=== PATIENT | male | born 1960 | race Caucasian/White ===

== ENCOUNTER 2020-01-05 07:26 | Outpatient (CLI) | payer OTHER, SELFPAY ==
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
[2020-01-28 10:54] VITALS: BMI 31.3
== END 2020-01-05 07:27 | disposition home or self-care (01) ==
LOC: ANHCSM 07:27
PROVIDERS: PCP Family Medicine; Visit Provider Family Medicine
DX: G47.33 Obstructive sleep apnea (adult) (pediatric) (principal); R06.00 Dyspnea, unspecified; I10 Essential (primary) hypertension; I67.9 Cerebrovascular disease, unspecified
CPT/HCPCS: 95800

== ENCOUNTER 2020-05-03 10:31 | Outpatient (CLI) | payer OTHER, SELFPAY ==
--- NOTE | 2020-05-03 10:58 | ECG_ITS ---
Measurements Intervals [place] Rate: 55 P: 49 AL: 184 QRS: -7 QRSD: 90 T: 5 QT: 391 QTc: 375 Interpretive Statements SINUS BRADYCARDIA BORDERLINE ECG Electronically Signed On 05-03-2020 11:25:13 CDT by Chris Sanders D.O.
[2020-05-03 11:16] LABS: Alanine Aminotransferase 33 U/L (4-50); Albumin Level 4.5 g/dL (3.5-5.1); Alkaline Phosphatase 53 U/L (38-126); Anion Gap 3 mmol/L (8-16); Aspartate Amino Transferase 30 U/L (17-59); Bilirubin,Total 0.6 mg/dL (0.2-1.3); Blood Urea Nitrogen 18 mg/dL (9-20); Calcium 9.4 mg/dL (8.4-10.2); Carbon Dioxide 33 mmol/L (22-30); Chloride 105 mmol/L (98-107); Estimated Glomerular Filt Rate 48; Glucose 88 mg/dL (75-110); Potassium 4.5 mmol/L (3.4-5.0); Sodium 141 mmol/L (137-145)
[2020-05-03 12:19] LABS: Hematocrit 42.7 % (42.0-52.0); Hemoglobin 14.1 g/dL (14.0-18.0); Mean Corpuscular Hemoglobin 29.7 pg (26-34); Mean Corpuscular Volume 89.9 fl (80-100); Mean Platelet Volume 8.3 fl (7.4-10.4); Platelet Count Result 272 k/mm3 (150-375); Red Blood Count 4.75 M/mm3 (4.6-6.20); Red Cell Distribution Width 12.5 % (11.5-14.5); White Blood Count 7.6 K/mm3 (4.5-10.0)
== END 2020-05-03 10:32 | disposition home or self-care (01) ==
LOC: ANHLAB 10:33
PROVIDERS: PCP Family Medicine; Visit Provider Orthopaedic Surgery
DX: Z01.818 Encounter for other preprocedural examination (principal); R94.31 Abnormal electrocardiogram [ECG] [EKG]
CPT/HCPCS: 36415; 80053; 85027; 93005

== ENCOUNTER 2020-08-28 10:57 | Outpatient (CLI) | payer OTHER, SELFPAY ==
--- NOTE | ~2020-08-28 | MR_ITS ---
EXAMINATION: MR shoulder RT wo con DATE: 08/28/2020 11:45 INDICATION: Right shoulder tendinitis and pain. TECHNIQUE: Magnetic resonance imaging (MRI) of the right shoulder was performed without intravenous c ontrast. Sequences included axial PD-weighted FS FSE, coronal oblique PD-weighted FS FSE and T2-weigh rina FS FSE, and sagittal oblique T2-weighted FS FSE and T1-weighted FSE. COMPARISON: Right shoulder radiographs 06/07/2020 FINDINGS: Coracoacromial arch: The acromion undersurface is curved in morphology (type II). There is severe acromioclavicular joint osteoarthritis including inferiorly directed osteophytes. There is moderate subacromial/subdeltoid bu rsitis. Rotator cuff: There is moderate supraspinatus and infraspinatus tendinopathy. Teres minor tendon is normal. There i s moderate subscapularis tendinopathy. There is a small interstitial tear of subscapularis tendon. Th ere is no asymmetric fatty atrophy of the rotator cuff muscle bellies. Biceps tendon and glenoid labrum: Biceps tendon is in bicipital groove. Intra-articular biceps tendon is normal. There is a tear of sup erior labrum from 11:00 to 12:00 (SLAP tear). Fluid: There is a small glenohumeral joint effusion. Bones/cartilage: Humeral head cartilage is normal. Glenoid cartilage is normal. IMPRESSION: 1. Moderate rotator cuff tendinopathy with small interstitial tear of subscapularis tendon. 2. Severe acromioclavicular joint osteoarthritis. 3. SLAP tear. 4. Moderate subacromial/subdeltoid bursitis. 5. Small glenohumeral joint effusion. Reviewed, dictated and finalized at location A. IMPRESSION: 1. Moderate rotator cuff tendinopathy with small interstitial tear of subscapul ramos tendon. 2. Severe acromioclavicular joint osteoarthritis. 3. SLAP tear. 4. Moderate subacromial/subdeltoid bursitis. 5. Small glenohumeral joint effusion.
== END 2020-08-28 10:58 | disposition home or self-care (01) ==
PROVIDERS: PCP Family Medicine; Visit Provider Orthopaedic Surgery
DX: M75.81 Other shoulder lesions, right shoulder (principal); M19.011 Primary osteoarthritis, right shoulder; S43.431A Superior glenoid labrum lesion of right shoulder, initial encounter; M75.51 Bursitis of right shoulder; M25.411 Effusion, right shoulder
CPT/HCPCS: 73221

== ENCOUNTER 2021-01-21 01:35 | Day surgery (SDC) | payer OTHER, SELFPAY ==
[2021-01-06 14:17] VITALS: BMI 32.2
[2021-01-21 09:29] VITALS: BP 109/80; PULSE 69; RESP 20; TEMP 36.4; O2SAT 99; BMI 33.0
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
[2021-01-21] MEDS: LACTATED RINGERS 1,000 ML 150 ML IV CONT (09:43)
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
[2021-01-21 10:20] VITALS: BP 81/54; PULSE 64; RESP 22; O2SAT 95
[2021-01-21 10:30] VITALS: BP 99/69; PULSE 76; RESP 22; O2SAT 95
[2021-01-21 10:40] VITALS: BP 105/74; PULSE 65; RESP 22; O2SAT 96
== END 2021-01-21 10:48 | disposition home or self-care (01) ==
PROVIDERS: PCP Family Medicine; Visit Provider Internal Medicine Gastroenterology
PROC: 0DJD8ZZ Inspection of Lower Intestinal Tract, Via Natural or Artificial Opening Endoscopic (ICD-10-PCS; CPT 45378; principal; 2021-01-21 10:30)
DX: Z12.11 Encounter for screening for malignant neoplasm of colon (principal); Z86.010 Personal history of colon polyps; K64.8 Other hemorrhoids; Z86.718 Personal history of other venous thrombosis and embolism; I49.9 Cardiac arrhythmia, unspecified; I70.213 Atherosclerosis of native arteries of extremities with intermittent claudication, bilateral legs; I71.03 Dissection of thoracoabdominal aorta; I15.0 Renovascular hypertension; I10 Essential (primary) hypertension; E78.5 Hyperlipidemia, unspecified; G47.33 Obstructive sleep apnea (adult) (pediatric); I70.1 Atherosclerosis of renal artery; Z90.49 Acquired absence of other specified parts of digestive tract; Z79.82 Long term (current) use of aspirin; E66.9 Obesity, unspecified; Z68.33 Body mass index [BMI] 33.0-33.9, adult
CPT/HCPCS: 45378; J2704; J7120

== ENCOUNTER 2021-02-15 00:15 | Day surgery (SDC) | payer OTHER, SELFPAY ==
[2021-02-08 12:12] VITALS: BMI 32.1
--- NOTE | 2021-02-08 12:20 | PC.NURSE ---
Report to the Outpatient Waiting Room, entrance under the green pavilion located off [facility], at time 0600 on date 02/15/21. OR Time: 0730. - You and your visitor will be asked a series of questions to screen for COVID 19 for your protection. - A mask is required within the hospital. - Only one visitor is allowed at this time. Patient visitors will be guided where to wait when not with patient. Preoperative COVID Testing Requirements: No COVID Test needed if: (proof is required; if not received patient will have Rapid Test prior to entry) - Patient has received COVID Vaccine at least 14 days prior to procedure date or - Patient has positive COVID test result within last 90 days of surgery date. COVID Test needed if above criteria is not met If not COVID vaccinated a COVID test must be conducted within 72 hours of surgery and patient is asked to isolate self from time of testing until procedure. You will go to the [facility] for your COVID testing. The [facility] is located at the corner of [address] [facility]. You will only be called if COVID results are positive and your surgeon may reschedule your elective surgery date. Patients may have clear liquids (water, carbonated beverages, clear teas, apple juice) until 3 hours prior to surgery with a maximum of 20 ounces. - No food from midnight until time of surgery - Infants may have breast milk until 4 hours before surgery, formula 6 hours prior to surgery. - Children will be allowed to drink immediately following surgery. If applicable, please bring a bottle or sippy cup to assist with drinking. Juice, water, soda, and popsicles are readily available. For infants on formula, please bring formula the day of surgery. Pacifiers are allowed. Take the following medications with a SIP of water the morning of surgery: METOPROLOL Medications to discontinue per physician: VITAMINS/SUPPLEMENTS Date to take last dose: 02/11/21 STOP ASPIRIN 7 DAYS PRIOR TO SURGERY PER DR. FRANCO Please no make-up, nail greek, hairspray, perfume, deodorant, or body powder the day of surgery. No jewelry (including any body piercings) or valuables the day of surgery, leave them at home. Please take a shower or bath the night before, or the morning of, surgery with an antibacterial soap. Wear comfortable, loose fitting clothing. Children are encouraged to wear pajamas. - Jewelry must be removed prior to entering the operating room. Rings and piercings that are not removed may be cut off. - The hospital will not accept responsibility for valuables. - Please leave all valuables, including medications, at home the day of surgery. If you are going home after surgery, a licensed screw driver operator must drive you home. - NO public transportation without another adult. - We recommend that an adult stay with you for 24 hours following discharge. - We also recommend that you do not drive, make important decision, drink alcoholic beverages, or take any drugs that were not prescribed by your health care provider for at least 24 hours after your discharge time. For Pediatric surgeries, we recommend two adults accompany the child home (only one inside the building at this time). Follow any additional instructions given to you from your surgeon. Telephone instructions given to NICHOLAS JOSUE and asked if any additional questions and then verbalized understanding. Patient advised to call surgeon office or pre surgery nurse liaison [phone] if any additional questions.
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
--- NOTE | 2021-02-14 14:26 | WPDANESPNB ---
Anes - Peripheral Nerve Block Date/Time: 02/14/21 14:26 I have discussed with the patient/family/POA the placement of a peripheral nerve block for post-operative pain management, including associated risks, benefits, complications, and side effects. Alternative methods of post-operative analgesia were detailed. Questions were solicited and answers provided to the satisfaction of the patient/family/POA. Time-Out: A pre-procedural Time-Out was completed immediately before starting the procedure and confirmed: Patient Identification, Site, Procedure, Patient Position and the Availability of Requisite Equipment. Clinical Indications: Acute post-operative pain management requested by the operative surgeon. Nerve Block Insertion Note Anes-nerve block: supraclavicular right Patient position: supine Skin prep: chlorhexidine Needle: 22 gauge, stimulating, insulated echogenic needle. Needle length: 80 mm Technique: ultrasound (in plane) Injectate: bupivacaine 0.5% with epi 5 mcg/ml (20cc) Observations: tolerated well Complications: none Procedure start time:: 730 Procedure end time:: 735
[2021-02-15] VITALS (10 sets, daily range): BP systolic 91–153; BP diastolic 66–83; PULSE 49–69; RESP 14–22; TEMP 36.1–36.6; O2SAT 91–99
[2021-02-15] MEDS: ACETAMINOPHEN 500 MG TABLET 1000 MG PO (06:34)
[2021-02-15] MEDS: KETOROLAC 15 MG/ML VIAL (*BKC) IV PUSH (06:53)
[2021-02-15] MEDS: LACTATED RINGERS 1,000 ML 30 ML IV CONT ×2 (06:55→10:40)
--- NOTE | 2021-02-15 07:25 | WPDHPUPDATE1 ---
History and Physical Update Update Date/Time: 02/15/21 07:25 History and Physical has been reviewed, including an updated exam of the patient. There are NO changes in the patient's condition. Risks, benefits, and alternatives have been discussed and questions answered. Patient agrees to proceed with procedure.
[2021-02-15] MEDS: ceFAZolin 3 GM/D5W 100 ML 100 ML IVPB (07:50)
--- NOTE | 2021-02-15 14:25 | W.PM.PROC2 ---
Procedure Note - Detailed Date of Procedure 02/15/21 Pre-op Diagnosis 1. Rotator cuff tendinitis, right shoulder. 2. Impingement syndrome right shoulder. 3. SLAP tear right shoulder. Post-op Diagnosis same Procedure Performed 1. Arthroscopic rotator cuff repair. 2. Arthroscopic subacromial decompression 3. Arthroscopic biceps tenodesis Surgeon Gavino Vail MD Tow Truck Operator Janet Hua PA-C Anesthesia general and regional (supraclavicular block) Indications Patient complained of persistent lateral shoulder pain worse with reaching, and overhead activities. Pain despite an injection and physical therapy. Significant limitations in his quality of life. MRI showed interstitial tearing of the supraspinatus with tendinosis. Subacromial spur. Slap tear. Findings Significant unstable SLAP tear. Mild biceps tendinosis. Arthroscopic biceps tenodesis performed with suture at the rotator interval. Debridement of the superior anterior and posterior labrum. Articular cartilage appeared normal. The articular rotator cuff was also normal. No significant contractures. Mild bursitis encountered. Slight softening of the rotator cuff at the area of the interstitial tear. Regeneten implant placed on the rotator cuff and reparied with 3 BIANCA anchors and 2 peek anchors. Description of Procedure Preoperative antibiotics were given. An interscalene block was administered in the preoperative area. The patient was bought brought to the operating room. A general anesthetic was administered. The patient was carefully positioned in the beach chair position. The head and neck were carefully positioned. The non operative extremity was also carefully positioned. The shoulder was prepped and draped in the usual sterile fashion. Examination was performed. Standard posterior and anterior arthroscopic portals were established. Inflow achieved with the arthroscopic pump using saline and epinephrine. The glenohumeral joint was carefully inspected. The superior labrum was significantly torn with extension anteriorly and posteriorly. This was debrided. The biceps was pulled in the joint and found to have some hyperemia. An anterior portal was used. The biceps was tagged with PDS suture and an Orthocord suture was shuttled through the tendon. It was later tied on the bursal side for tenodesis. Attention was turned to the subacromial space. A complete bursectomy was performed. The anterolateral acromion was slightly prominent. A modest acromioplasty was performed. The rotator cuff appeared mostly normal although there was some low-grade fraying of the bursal side and a small soft spot subtly at the central supraspinatus. It was elected repair with the Regeneten collagen implant. Three BIANCA suture anchors were placed along the medial aspect of the tissue, and 2 peek anchors placed laterally. The arthroscopic instruments were removed. The wounds were closed with 4-0 Monocryl subcuticular suture and steri strips. There were no complications. A sling was applied and the patient brought to the recovery room. Physician under water assistant, Janet Hua PA-C, required for surgery; including patient positioning, draping, arthroscopic camera operation, maintaining instrument position, wound closure, and dressing and sling placement. Implants Regeneten Bio inductive implant, medium-sized. Three medial BIANCA tendon anchors. Two lateral PEEK bone anchors. Estimated Blood Loss -20.0 Pathology none sent Complications No immediate complications Condition stable Disposition PACU
== END 2021-02-15 13:00 | disposition home or self-care (01) ==
PROVIDERS: PCP Family Medicine; Visit Provider Orthopaedic Surgery
PROC: (CPT 29805; principal; 2021-02-15 07:30)
DX: M75.81 Other shoulder lesions, right shoulder (principal); M75.101 Unspecified rotator cuff tear or rupture of right shoulder, not specified as traumatic; M75.41 Impingement syndrome of right shoulder; M75.21 Bicipital tendinitis, right shoulder; M75.51 Bursitis of right shoulder; G89.18 Other acute postprocedural pain; I10 Essential (primary) hypertension; E78.5 Hyperlipidemia, unspecified; G47.33 Obstructive sleep apnea (adult) (pediatric); I73.9 Peripheral vascular disease, unspecified; Z86.73 Personal history of transient ischemic attack (TIA), and cerebral infarction without residual deficits; Z86.718 Personal history of other venous thrombosis and embolism; Z79.82 Long term (current) use of aspirin; E66.9 Obesity, unspecified; Z68.34 Body mass index [BMI] 34.0-34.9, adult
CPT/HCPCS: 29828; 29827; 29826; 64415; A4565; A9270; J0330; J0690; J1100; J1885; J2250; J2370; J2405; J2704; J3010; J7120

== ENCOUNTER → 2022-07-28 08:30 | Outpatient (CLI) | payer OTHER, SELFPAY ==
--- NOTE | ~2022-07-28 | XR_ITS ---
EXAMINATION: XR knee LT 3V DATE: 07/28/2022 08:51 INDICATION: Left knee pain. TECHNIQUE: 3 views of left knee were obtained. COMPARISON: None. FINDINGS: Bone alignment is normal. No fracture. There is mild tricompartmental osteoarthritis charac terized by tiny osteophytes. No knee joint effusion. IMPRESSION: 1. Mild left knee osteoarthritis. Reviewed, dictated and finalized at location A.
== END ==
PROVIDERS: PCP Family Medicine; Visit Provider Physician Assistant
DX: M17.12 Unilateral primary osteoarthritis, left knee (principal)
CPT/HCPCS: 73562

== ENCOUNTER → 2022-10-10 09:18 | Outpatient (CLI) | payer OTHER, SELFPAY ==
--- NOTE | ~2022-10-10 | MR_ITS ---
EXAMINATION: MR knee LT wo con DATE: 10/10/2022 10:05 INDICATION: Left knee pain TECHNIQUE: Magnetic resonance imaging (MRI) of the left knee was performed without intravenous contra st. Sequences included coronal PD-weighted FSE, coronal PD-weighted FS FSE, sagittal T2-weighted FSE , sagittal PD-weighted FS FSE and axial PD weighted fat saturated FSE. COMPARISON: None. FINDINGS: Medial compartment: Longitudinal horizontal tear of the body and posterior horn of the medial meniscus which extends into the superior articular surface at the anterior body crossing across the free edge to the free edge a t the mid meniscal body. Small region of shallow chondral surface regularity along the lateral rim of the central weightbearing medial femoral condyle. Articular cartilage is otherwise normal. Lateral compartment: There is an irregular contour with mild increased signal at the posterior root of the lateral meniscu s suggestive of complex tear with posterior displacement of a small meniscal flap which is positioned with along the lateral margin of the vertical portion of the posterior cruciate ligament. There is a n intact posterior meniscal femoral ligament of [place]. Articular cartilage is normal. Patellofemoral compartment: Deep chondral fissuring with a few tiny foci of subarticular edema-like signal change centrally at th e central portion of the patellar apical ridge and extending to the immediately adjacent medial and l ateral facets. Ligaments and tendons: Anterior and posterior cruciate ligaments are normal. The medial collateral ligament and fibular warren ateral ligament complex are normal. Mild distal quadriceps tendinopathy. Large heterotopic ossicle an d mild tendinopathy at the and tibial insertion of the distal patellar tendon which suggests sequela of childhood [place] Thomas-Schlatter's disease. The visualized medial and lateral hamstring tendons as well as the iliotibial band are normal. Fluid: Physiologic amount of fluid in the joint space. No loose osteochondral bodies identified. Osseous/other: Bone alignment is normal. No fracture or pathologic marrow replacing process. IMPRESSION: 1. Longitudinal horizontal tear of the medial meniscus. 2. Complex tear with small displaced meniscal flap into the posterior root of the lateral meniscus. 3. Mild patellofemoral osteoarthritis with high-grade patellar chondromalacia. 4. Minimal osteoarthritis at the lateral compartment with small region of moderate grade chondral mal acia along the weightbearing medial femoral condyle. 5. Prominent heterotopic ossicle and mild tendinopathy at the distal patellar tendon likely sequela o f childhood [place] Thomas-Schlatter's disease. Reviewed, dictated and finalized at location A. IMPRESSION: 1. Longitudinal horizontal tear of the medial meniscus. 2. Complex tear with small displaced meniscal flap into the posterior root of t he lateral meniscus. 3. Mild patellofemoral osteoarthritis with high-grade patellar chondromalacia. 4. Minimal osteoarthritis at the lateral compartment with small region of moder ate grade chondral malacia along the weightbearing medial femoral condyle. 5. Prominent heterotopic ossicle and mild tendinopathy at the distal patellar t endon likely sequela of childhood Min-Schlatter's disease.
== END ==
PROVIDERS: PCP Family Medicine; Visit Provider Physician Assistant Surgical
DX: S83.272A Complex tear of lateral meniscus, current injury, left knee, initial encounter (principal); X58.XXXA Exposure to other specified factors, initial encounter; S83.242A Other tear of medial meniscus, current injury, left knee, initial encounter; M17.12 Unilateral primary osteoarthritis, left knee
CPT/HCPCS: 73721

== ENCOUNTER 2022-11-21 01:44 | Day surgery (SDC) | payer OTHER, SELFPAY ==
[2022-11-14 09:54] VITALS: BMI 32.7
--- NOTE | 2022-11-14 10:01 | PC.NURSE ---
Report to the Outpatient Waiting Room, entrance under the green pavilion located off [facility], at time 1130 on date 11/21/22. Planned Procedure Time: 1330. Time changes happen often and if your time is changed the preop area will call you the afternoon before. - You and your visitor will be asked to self-screen and do not enter if you have any COVID symptoms. - A mask is optional within the hospital at this time. Patients may have clear liquids (water, carbonated beverages, clear teas, apple juice) until 3 hours prior to surgery with a maximum of 20 ounces. - No food from midnight until time of surgery Take the following medications with a SIP of water the morning of surgery: METOPROLOL DO NOT STOP ANY OF YOUR OTHER PRESCRIPTION MEDICATIONS PRIOR TO SURGERY ?EXCEPT THE FOLLOWING Medications to discontinue per physician: ASPIRIN, NAPROXEN Date to take last dose: 11/13/22 VITAMINS LAST DOSE 11/17/22 Please no make-up, nail serbian, hairspray, perfume, deodorant, or body powder the day of surgery. No jewelry (including any body piercings) or valuables the day of surgery, leave them at home. Please take a shower or bath the night before, or the morning of, surgery with an antibacterial soap. Wear comfortable, loose fitting clothing. - Jewelry must be removed prior to entering the operating room. Rings and piercings that are not removed may be cut off. - The hospital will not accept responsibility for valuables. - Please leave all valuables, including medications, at home the day of surgery. If you are going home after surgery, a licensed local company hazmat driver must drive you home. - NO public transportation without another adult if you receive anesthesia. - We recommend that an adult stay with you for 24 hours following discharge. - We also recommend that you do not drive, make important decision, drink alcoholic beverages, or take any drugs that were not prescribed by your health care provider for at least 24 hours after your discharge time. Follow any additional instructions given to you from your surgeon. If you or anyone in your household have experienced Covid symptoms in the past week, please notify your surgeon or the nurse liaison at the phone number below for possible testing. Telephone instructions given to PT - NICHOLAS JOSUE and asked if any additional questions and then verbalized understanding. Patient advised to call surgeon office or pre surgery nurse liaison [phone] if any additional questions.
[2022-11-21] VITALS (8 sets, daily range): BP systolic 91–135; BP diastolic 58–76; PULSE 44–61; RESP 14–16; TEMP 36.2–36.3; O2SAT 96–100
--- NOTE | 2022-11-21 07:12 | WPDHPUPDATE1 ---
History and Physical Update Update Date/Time: 11/21/22 07:12 PROCEDURE CLARIFICATION; LEFT KNEE ARTHROSCOPIC PARTIAL MEDIAL AND LATERAL MENISCECTOMIES. History and Physical has been reviewed, including an updated exam of the patient. There are NO changes in the patient's condition. Risks, benefits, and alternatives have been discussed and questions answered. Patient agrees to proceed with procedure.
--- NOTE | 2022-11-21 10:15 | ECG_ITS ---
Measurements Intervals [place] Rate: 52 P: 16 WI: 189 QRS: -9 QRSD: 93 T: 8 QT: 426 QTc: 397 Interpretive Statements SINUS BRADYCARDIA EARLY REPOLARIZATION [ST ELEVATION WITH NORMALLY INFLECTED T WAVE] COMPARED TO ECG 05/03/2020 11:08:38 NO SIGNIFICANT CHANGES Electronically Signed On 11-21-2022 12:46:18 CDT by Kevon Hayden M.D.
[2022-11-21] MEDS: KETOROLAC 15 MG/ML VIAL (*BKC) IV PUSH (12:00)
[2022-11-21] MEDS: ACETAMINOPHEN 500 MG TABLET 1000 MG PO (12:00)
[2022-11-21] MEDS: LACTATED RINGERS 1,000 ML 30 ML IV CONT ×2 (12:00→13:41)
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
[2022-11-21] MEDS: ceFAZolin 2 GM/D5W 50 ML 2 GM/50 ML BAG IVPB (12:30)
[2022-11-21] MEDS: BUPIVACAINE/EPINEPHRINE 0.5% 10 ML VIAL 20 ML INFILTRATE (12:54)
--- NOTE | 2022-11-21 13:35 | W.PM.PROC2 ---
Procedure Note - Detailed Date of Procedure 11/21/22 Pre-op Diagnosis Left knee medial and lateral meniscus tears Post-op Diagnosis Same Procedure Performed Arthroscopic partial medial and lateral meniscectomy, left knee. Surgeon Gavino Vail MD Anesthesia General Findings Complex posterior horn tear medial and subtle posterior horn lateral tear. Medial femur chondromalacia grade 1, medial tibia grade 1. Lateral femur chondromalacia grade 0, lateral tibia grade 1. Patellar grade 0, trochlea grade 0. ACL intact. Description of Procedure The patient was identified and the surgical site confirmed and signed in the preoperative holding area. Antibiotics were started per protocol. He was brought to the operative room and transferred to the OR table. A general anesthetic was administered. Supine position with the operative lower extremity position in the leg rios after placement of a well padded tourniquet. The leg support was lowered and the contralateral limb was supported with a soft bolster. The knee was prepped and draped in the usual sterile fashion. A time-out was performed. The portal sites were marked and infiltrated with 0.5% Marcaine 20 mL. The limb was exsanguinated and the tourniquet inflated to 300 mL Hg. Standard inferolateral and inferomedial portals were established. Inflow was obtained with the saline pump. The camera was introduced. Diagnostic inspection of the joint was accomplished. The menisci were debrided with the arthroscopic shaver and punches until stable. The arthroscopic instruments were removed. The tourniquet released and wounds closed with subcutaneous 4-0 Monocryl absorbable suture. Steri strips and a sterile dressing were applied. A light elastic wrap was placed. The patient was extubated and brought to the recovery room in stable condition. Estimated Blood Loss 5 Drains No Complications No immediate complications Condition Stable Disposition PACU [facility] Billing Surgery - Charge Forward: Surgery Billing
== END 2022-11-21 14:48 | disposition home or self-care (01) ==
PROVIDERS: PCP Family Medicine; Visit Provider Orthopaedic Surgery
PROC: (CPT 29870; principal; 2022-11-21 13:30)
DX: M23.322 Other meniscus derangements, posterior horn of medial meniscus, left knee (principal); M23.352 Other meniscus derangements, posterior horn of lateral meniscus, left knee; M22.42 Chondromalacia patellae, left knee; I10 Essential (primary) hypertension; E78.5 Hyperlipidemia, unspecified; G47.33 Obstructive sleep apnea (adult) (pediatric); I70.1 Atherosclerosis of renal artery; I70.213 Atherosclerosis of native arteries of extremities with intermittent claudication, bilateral legs; E66.9 Obesity, unspecified; Z68.33 Body mass index [BMI] 33.0-33.9, adult; Z79.82 Long term (current) use of aspirin; Z86.718 Personal history of other venous thrombosis and embolism; Z86.73 Personal history of transient ischemic attack (TIA), and cerebral infarction without residual deficits
CPT/HCPCS: 29880; 93005; A9270; J0690; J1100; J1885; J2250; J2405; J2704; J3010; J7120

== ENCOUNTER 2022-12-04 10:42 | Outpatient (CLI) | payer OTHER, SELFPAY ==
[2022-12-04 20:13] LABS: Alanine Aminotransferase 27 U/L (6-50); Albumin Level 4.5 g/dL (3.5-5.1); Alkaline Phosphatase 64 U/L (38-126); Anion Gap 9 mmol/L (8-16); Aspartate Amino Transferase 34 U/L (17-59); Bilirubin,Total 0.6 mg/dL (0.2-1.3); Blood Urea Nitrogen 20 mg/dL (9-20); Calcium 9.3 mg/dL (8.4-10.2); Carbon Dioxide 26 mmol/L (22-30); Chloride 103 mmol/L (98-107); Cholesterol 184 mg/dL (0-200); Estimated Glomerular Filt Rate > 60; Glucose 114 mg/dL (65-110); HDL Direct 42 mg/dL; Potassium 4.3 mmol/L (3.4-5.0); Sodium 138 mmol/L (137-145); Triglycerides 131 mg/dL (<150)
[2022-12-04 20:24] LABS: LDL Cholesterol Direct 107 mg/dL
[2022-12-05 00:24] LABS: Hemoglobin A1C 5.5 % (<5.7)
== END 2022-12-04 10:43 | disposition home or self-care (01) ==
LOC: ANHGOSHLAB 10:43
PROVIDERS: PCP Family Medicine; Visit Provider Family Medicine
DX: E78.5 Hyperlipidemia, unspecified (principal); R73.03 Prediabetes
CPT/HCPCS: 36415; 80053; 80061; 83036

== ENCOUNTER 2023-02-13 10:29 | Emergency (ER) | payer OTHER, SELFPAY ==
[2023-02-13 10:55] VITALS: BP 125/82; PULSE 81; RESP 16; TEMP 36.4; O2SAT 98
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
== END 2023-02-13 11:08 | disposition home or self-care (01) ==
PROVIDERS: Emergency Provider Nurse Practitioner Family; PCP Family Medicine
DX: J01.80 Other acute sinusitis (principal); B96.89 Other specified bacterial agents as the cause of diseases classified elsewhere; E78.5 Hyperlipidemia, unspecified; G57.33 Lesion of lateral popliteal nerve, bilateral lower limbs; Z86.718 Personal history of other venous thrombosis and embolism; E66.9 Obesity, unspecified; Z68.32 Body mass index [BMI] 32.0-32.9, adult; I10 Essential (primary) hypertension
CPT/HCPCS: 99213; G0463

== ENCOUNTER 2023-06-06 09:22 | Outpatient (CLI) | payer OTHER, SELFPAY ==
[2023-06-06 12:24] LABS: Alanine Aminotransferase 27 U/L (6-50); Albumin Level 4.3 g/dL (3.5-5.1); Alkaline Phosphatase 71 U/L (38-126); Anion Gap 6 mmol/L (4-12); Aspartate Amino Transferase 40 U/L (17-59); Bilirubin,Total 0.6 mg/dL (0.2-1.3); Blood Urea Nitrogen 21 mg/dL (9-20); Calcium 9.2 mg/dL (8.4-10.2); Carbon Dioxide 27 mmol/L (22-30); Chloride 108 mmol/L (98-107); Cholesterol 151 mg/dL (0-200); Estimated Glomerular Filt Rate > 60; Glucose 103 mg/dL (65-110); HDL Direct 41 mg/dL; Potassium 4.6 mmol/L (3.4-5.0); Sodium 141 mmol/L (137-145); Triglycerides 99 mg/dL (<150)
[2023-06-06 12:35] LABS: LDL Cholesterol Direct 95 mg/dL
[2023-06-06 12:43] LABS: Hemoglobin A1C 5.6 % (<5.7)
== END 2023-06-06 09:23 | disposition home or self-care (01) ==
LOC: ANHGOSHLAB 09:25
PROVIDERS: PCP Family Medicine; Visit Provider Family Medicine
DX: E78.5 Hyperlipidemia, unspecified (principal)
CPT/HCPCS: 36415; 80053; 80061; 83036

== ENCOUNTER 2023-11-30 09:28 | Outpatient (CLI) | payer OTHER, SELFPAY ==
[2023-11-30 16:39] LABS: Alanine Aminotransferase 26 U/L (6-50); Albumin Level 4.1 g/dL (3.5-5.1); Alkaline Phosphatase 69 U/L (38-126); Anion Gap 5 mmol/L (4-12); Aspartate Amino Transferase 39 U/L (17-59); Bilirubin,Total 0.3 mg/dL (0.2-1.3); Blood Urea Nitrogen 24 mg/dL (9-20); Carbon Dioxide 30 mmol/L (22-30); Chloride 105 mmol/L (98-107); Cholesterol 161 mg/dL (0-200); Estimated Glomerular Filt Rate > 60; Glucose 86 mg/dL (65-110); HDL Direct 43 mg/dL; Potassium 4.8 mmol/L (3.4-5.0); Sodium 140 mmol/L (137-145); Triglycerides 111 mg/dL (<150)
[2023-11-30 16:47] LABS: LDL Cholesterol Direct 87 mg/dL
[2023-11-30 16:49] LABS: Hemoglobin A1C 5.9 % (<5.7)
[2023-11-30 17:05] LABS: Prostate Specific Antigen 0.7 ng/mL (< OR = 4.0)
== END 2023-11-30 09:29 | disposition home or self-care (01) ==
LOC: ANHGOSHLAB 09:30
PROVIDERS: PCP Family Medicine; Visit Provider Family Medicine
DX: E78.5 Hyperlipidemia, unspecified (principal); N18.30 Chronic kidney disease, stage 3 unspecified; Z12.5 Encounter for screening for malignant neoplasm of prostate
CPT/HCPCS: 36415; 80053; 80061; 83036; 84153; G0103

== ENCOUNTER 2024-06-04 09:21 | Outpatient (CLI) | payer OTHER, SELFPAY ==
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
--- OUTSIDE RECORDS SUMMARY | 2024-06-04 10:05 | XMS_ITS | Clinical Summary ---
Author Organization [facility] Address [address] [place] [address] Care Team Providers Care Route Agent Name Role Phone Unavailable Primary Care Provider Unavailabl e Social History Tobacco Use Types Packs/Day Years Used Date Smoking Tobacco: Never Assessed Sex and Gender Information Value Date Recorded Sex Assigned at Not on file Legal Sex Male 10:29 PM CDT Gender Identity Not on file Sexual Orientation Not on file Plan of Treatment Health Maintenance Due Date Last Done Comments Colorectal Cancer Screening Colonoscopy (10 Years) 1960 Annual Physical 05/29/1963 Hepatitis C 1978 DTaP, Tdap and Td Vaccines ( 1 - Tdap) 05/29/1979 Zoster Vaccines (1 of 2) 2010 COVID-19 Vaccine (2023-2 5 season) 2023 RSV Immunization or 60+ Years (1 - 1-dose 75+ series) 05/29/2035 Meningococcal B Vaccine Aged Out No l onger eligible based on patient's age to complete this topic Meningococcal Vaccine Aged Out No isaac reva eligible based on patient's age to complete this topic Pneumococcal Vaccine: Pediat rics (0 to 5 Years) and At-Risk Patients (6 to 49 Years) Aged Out No longer eligible b ased on patient's age to complete this topic RSV Immunizations Under 20 Months Aged Out No longer eligible based on patient's age to complete this topic
--- OUTSIDE RECORDS SUMMARY | 2024-06-04 10:05 | XMS_ITS | Continuity of Care Document ---
Author Organization [facility] Address [address] [place] [address] Phone Care Team Providers Care Cider Press Operator Name Role Phone Elgin Obregon PA-C Unavailable Allergies, Adverse Reactions, Alerts Substance Reaction Status Criticality No Known Allergies Active No Inform ation Medications Medication Instructions Dosage Effective Dates (start - stop) Status Comments aspirin 325 mg tablet take 1 tablet by oral route every day 325 MG - Active metoprolol tartrate 25 mg tablet take 1 tablet by oral route 2 times every day 25 MG - Active lisinopril 10 mg tablet take 1 tablet by oral route every day 10 MG - Active ATORVASTATIN CALCIUM (unknown strength) Not Available - Active Procedures Procedure Date Hip Xray 2 To 3 Views Unilateral W Pelvi s When Per Office/outpatient visit,est, mod 2023 Hip Xray 2 To 3 Views Unilateral W Pelvi s When Per Office/outpatient visit,est, mod 2021 Hip Xray 2 To 3 Views Unilateral W Pelvi s When Per Office/outpatient visit,est, mod 2019 Hip Xray 4+ Unilateral W Pelvis When Per formed Office/outpatient visit,est, mod 2017 Hip Xray Unilateral 1 View Office/outpatient visit,est, mod 2015 Hip Xray 1 View Unilateral W Pelvis X-ray exam of pelvis, 1-2 views 014 X-ray Exam Of Hip, Complete 3+ Views Feb Office/outpatient visit,est, mod 2013 Office/outpatient visit,est, mod 2011 X-ray exam of pelvis, 1-2 views 012 X-ray exam of hip, 1 view Office/outpatient visit,est, low 2008 X-ray exam of pelvis, 1-2 views 009 X-ray exam of hip, 1 view Office consultation, moderate 9 X-ray exam of knee, 3 views Office/outpatient visit,est, low 2006 X-ray exam of pelvis, 1-2 views 007 X-ray exam of hip, complete Physical Tx excercises, ea 15 min Office/outpatient visit,est, mod 2004 Physical Tx excercises, ea 15 min Physical Tx excercises, ea 15 min Iontophoresis, each 15 minutes 05 Physical Tx excercises, ea 15 min Iontophoresis, each 15 minutes 05 Physical Tx excercises, ea 15 min Iontophoresis, each 15 minutes 05 Physical Tx excercises, ea 15 min Office/outpatient visit,est, mod 2004 Drain/inject intermed joint/bursa Methylprednisolone Acetate X-ray exam of elbow, 2 views X-ray exam of pelvis, 1-2 views 005 X-ray exam of hip, complete Iontophoresis, each 15 minutes 05 Physical Tx excercises, ea 15 min Iontophoresis, each 15 minutes 05 Physical Tx excercises, ea 15 min Iontophoresis, each 15 minutes 05 Physical Tx excercises, ea 15 min Iontophoresis, each 15 minutes 05 Physical Tx excercises, ea 15 min Iontophoresis, each 15 minutes 05 Physical Tx excercises, ea 15 min Iontophoresis, each 15 minutes 05 Physical Tx excercises, ea 15 min Iontophoresis, each 15 minutes 05 Physical Tx excercises, ea 15 min Paraffin bath therapy Iontophoresis, each 15 minutes 05 Physical Tx excercises, ea 15 min Iontophoresis, each 15 minutes 05 Physical therapy evaluation Office/outpatient visit,est, mod 2004 Drain/inject intermed joint/bursa Hydrocortisone Physical Tx excercises, ea 15 min Ultrasound, each 15 minutes Iontophoresis, each 15 minutes 05 Iontophoresis, each 15 minutes 05 Physical Tx excercises, ea 15 min Iontophoresis, each 15 minutes 05 Ultrasound, each 15 minutes Office consultation, moderate X-ray exam of elbow, 2 views Advance Directives Directive Yes / No Effective Date File Name Other Directive No N/A N/A WARNING:The information contained in this section is historical and is provided for information only and does not constitute a legal document or any assurance that the information is still accurate. Please verify the information with the rios of the legal document before using it for clinical purposes. Encounters Encounter Description Practice Location Reason(s) For Visit Diagnoses Date Provider Providers Copied on Encounter Office/outpat ient visit,est, mod [facility], [address], [place], [id number], [place] tel:[phone] [facility] left hip pain (chief complaint) Pain in left hipBody mass index (BMI) 32.0-32.9, adultUnilateral primary osteoarthritis, left hipPresence of left artificial hip joint 4 Mindi Eisenberg. [address], [place], [id number] , . tel:[phone] Referring Provider: Elgin Degroot, [address] [place], [address] . tel:[phone] Office/outpat ient visit,est, [facility], [address] [place] [address], [id number], tel:[phone] [facility] left hip pain (chief complaint) Pain in left hipUnilateral primary osteoarthritis, left hipPresence of left artificial hip joint 2 Mindi Elgin. [address] [place] [address], [id number] , . tel:[phone] Office/outpat ient visit,est, [facility], [address] [place] [address], [id number], tel:[phone] [facility] left hip pain (chief complaint) Unilateral primary osteoarthritis, left hipPresence of left artificial hip joint 0 Ty Eisenberg. [address] [place] [address], [id number] , [place]. [phone] Office/outpat ient visit,[facility], [facility], [address] [place] [address], [id number], tel:[phone] [facility] left hip weakness (chief complaint) Pain in left hipUnilateral primary osteoarthritis, left hipPresence of left artificial hip joint 8 Mindi Elgin. [address] [place] [address], [id number] , [place]. [phone] Office/outpat ient visit,est, [facility], [address] [place] [address], [id number], tel:[phone] [facility] left hip pain (chief complaint) Primary osteoarthritis of left hipPresence of left artificial hip joint 6 Ty Eisenberg. [address] [place] [address], [id number] , [place]. tel:[phone] Office/outpat ient visit,est, [facility], [address] [place] [address], [id number], tel:[phone] RAMÍREZ HENRY left hip pain (chief complaint) Billing ReviewBilling ReviewStatus Post Hip Replacement 0 4 Mindi Elgin. [address] [place] [address], [id number] , . tel:[phone] Referring Provider: Elgin Keys, [address] [place], [address] . tel:[phone] Office/outpat ient visit,[facility], [facility], [address] [place] [address], [id number], tel:[phone] [facility] No Information 2 Mindi Eisenberg. [address] [place] [address], [id number] , . tel:[phone] Office/outpat ient visit,[facility], [address] [place] [address], [id number], tel:[phone] [facility] No Information 9 Ty Eisenberg. [address] [place] [address], [id number] , . tel:[phone] Referring Provider: Elgin Degroot, [address] [place] [address], [id number] . tel:[phone] Office consultation, [facility], [address] [place] [address], [id number], tel:[phone] [facility] No Information 9 Ty Eisenberg. [address] [place] [address], [id number] , . [phone] Referring Provider: Efrain Ojeda, [address], [place], [address] . tel:[phone] Office/outpat ient visit,[facility], [address] [place] [address], [id number], [place] tel:[phone] [facility] No Information Dec-1 0-200 7 Ty Eisenberg. [address] [place] [address], [id number] , . tel: [phone] Referring Provider: Elgin Degroot, [address] [place] [address], [id number] . tel:[phone] [facility], [address] [place] [address], [id number], tel:[phone] [facility] No Information Dec-1 9-200 5 Ty Eisenberg. [address] [place] [address], [id number] , [place]. tel: [phone] Office/outpat ient visit,est, mod [facility], [address] [place] [address], [id number], tel:[phone] [facility] No Information Dec-1 2-200 5 Ty Eisenberg. [address] [place] [address], [id number] , [place]. tel: [phone] [facility], [address] [place] [address], [id number], tel:[phone] [facility] No Information Nov-2 8-200 5 Ty Eisenberg. [address] [place] [address], [id number] , . tel: [phone] [facility], [address] [place] [address], [id number], tel:[phone] [facility] No Information Nov-2 3-200 5 Ty Eisenberg. [address] [place] [address], [id number] , [place]. tel: [phone] [facility], [address] [place] [address], [id number], tel:[phone] [facility] No Information Nov-1 8-200 5 Ty Eisenberg. [address] [place] [address], [id number] , . tel: [phone] [facility], [address] [place] [address], [id number], [place] tel:[phone] [facility] No Information Nov-1 7-200 5 Ty Eisenberg. [address] [place] [address], [id number] , [place]. tel: [phone] [facility], [address] [place] [address], [id number], tel:[phone] [facility] No Information Nov-1 6-200 5 Ty Eisenberg. [address] [place] [address], [id number] , [place]. tel: [phone] Office/outpat ient visit,est, mod [facility], [address] [place] [address], [id number], tel:[phone] [facility] No Information Nov-1 4-200 5 Zulay Gray. [address] [place], [place], [id number] , . tel: [phone] [facility], [address] [place] [address], [id number], [place] tel:[phone] [facility] No Information Nov-1 4-200 5 Ty Eisenberg. [address] [place] [address], [id number] , [place]. tel: [phone] [facility], [address] [place] [address], [id number], tel:[phone] [facility] No Information Nov-1 1-200 5 Ty Eisenberg. [address] [place] [address], [id number] , [place]. tel: [phone] [facility], [address] [place] [address], [id number], [place] tel:[phone] [facility] No Information Nov-0 9-200 5 Ty Eisenberg. [address] [place] [address], [id number] , [place]. tel: [phone] [facility], [address] [place] [address], [id number], tel:[phone] [facility] No Information Nov-0 4-200 5 [facility]. [address] [place] [address], [id number] , [place]. tel: [phone] [facility], [address] [place] [address], [id number], [place] tel:[phone] [facility] No Information Nov-0 2-200 5 [facility]. [address] [place] [address], [id number] , [place]. tel: [phone] [facility], [address] [place] [address], [id number], [place] tel:[phone] [facility] No Information Nov-0 2-200 5 [facility]. [address] [place] [address], [id number] , [place]. tel: [phone] [facility], [address] [place] [address], [id number], [place] tel:[phone] [facility] No Information Nov-0 1-200 5 [facility]. [address] [place] [address], [id number] , [place]. tel: [phone] [facility], [address] [place] [address], [id number], [place] tel:[phone] [facility] No Information Oct-2 9-200 5 [facility]. [address] [place] [address], [id number] , [place]. tel: [phone] [facility], [address] [place] [address], [id number], [place] tel:[phone] [facility] No Information Oct-2 8-200 5 [facility]. [address] [place] [address], [id number] , [place]. tel: [phone] [facility], [address] [place] [address], [id number], [place] tel:[phone] [facility] No Information Oct-2 7-200 5 [facility]. [address] [place] [address], [id number] , [place]. tel:[phone] Office/outpat ient visit,est, mod [facility], [address] [place] [address], [id number], tel:[phone] [facility] No Information Oct-2 4-200 5 Zulay Gray. [address], [place], [id number] , . tel: [phone] [facility], [address] [place] [address], [id number], tel:[phone] [facility] No Information Oct-2 4-200 5 Ty Eisenberg. [address] [place] [address], [id number] , [place]. tel: [phone] [facility], [address] [place] [address], [id number], tel:[phone] [facility] No Information Oct-2 1-200 5 [facility]. [address] [place] [address], [id number] , . tel: [phone] [facility], [address] [place] [address], [id number], tel:[phone] [facility] No Information Oct-2 0-200 5 [facility]. [address] [place] [address], [id number] , . tel:[phone] Office consultation, [facility], [address] [place] [address], [id number], tel:[phone] [facility] No Information Sep-2 6-200 5 [facility]. [address] [place] [address], [id number] , . tel:[phone] Referring Provider: Efrain Ojeda, [address], [place], [address] . tel:[phone] Family History Family Member Type Diagnosis Age At Onset Problem (finding) Family history of Heart disease Payers Payer name Insurance type Covered libertarian ID Authoriza tidileep(s) [employer] CI [id number] Social History Type Description Quantity Date Captured Comments Alcohol Use Details Unknown Caffeine Use Details Unknown Tobacco Use Status No Information Smoking Status Never smoker Non-Smoking Tobacco Use Details : No Details Available : No Details Available Sex Male Vital Signs Date / Time: Height Weight BMI Pulse Rate Blood Pressure Temperature Respiratory Rate Body Surface Area Head Circumference Head Circ. Percentile Wt./Wilson. Percentile BMI percentile Pulse Ox Inhaled Ox 12:33 PM 74.00 in 115.666 kg (255.00 lbs) 32.7 4 kg/m eter (2) 74 /min 106/67 mm[Hg] 2.46 meter(2) Chief Complaint And Reason For Visit From encounter dated '03/30/2023 11:00'. left hip pain (chief complaint). Description: Mr Palacios is a 62 year old male who complains of lefthip pain. He presents with pain and weakness on the left side. The problem is better. Currently thepatient states that the symptoms are mild. The pain is described as diffuse. The symptoms occur with strenuous activity. Reason For Referral Reason For Referral No Information Plan Of Treatment Date Type Action Status Future Order: Radiology Order Hi p Unil W Pelvis 2-3 Views ([id number]), Ordered on: Ordered Future Order: Radiology Order Hi p Unil W Pelvis 2-3 Views ([id number]), Ordered on: Ordered Future Order: Radiology Order Hi p Unil W Pelvis 2-3 Views ([id number]), Ordered on: Ordered Future Order: Radiology Order Hi p Unil W Pelvis 4+ ([id number]), Ordered on: Ordered Future Order: Radiology Order Hi p Xray Unilateral 1 View ([id number]), Ordered on: Ordered Future Order: Radiology Order Pe lvis Xray 1 Or 2 Views (Includes Judet) ([id number]), Ordered on: Ordered History Of Present Illness Encounter Date Complaint History Of Prese nt Illness left hip pain Mr Palacios is a 6 2 year old male who complains of left hip pain. He presents with pain and weakness on the left side. The problem is better. Currently the patient states that the symptoms are mild. The pain is described as diffuse. The symptoms occur with strenuous activity. left hip pain Mr Palacios is a 6 0 year old male who complains of left hip pain. He presents with pain on the left side. The problem is fluctuating. Currently the patient states that the symptoms are mild-moderate. The pain is described as localized. The symptoms occur intermittently. He rates his current pain as 0/10. Patient has no pain at this time he has 2 episodes a year of moderate degree of discomfort mid thigh. This is been going on essentially since his surgery back in 2002 left hip pain Mr Palacios is a 5 8 year old male who complains of left hip pain. He presents with pain on the left side. He states that the symptoms have been chronic non-traumatic. The symptoms occur intermittently. The problem is resolved. left hip weakness Mr Palacios is a 56 year old male who complains of left hip weakness. He presents with weakness and stiffness on the left side. The problem is fluctuating. Currently the patient states that the symptoms are mild. The pain is described as localized. The symptoms occur with strenuous activity. Patient is status post left total hip date of surgery was February 25, 2002. He really has no complaints other than with deep squats certain activities cause mild discomfort. left hip pain Mr Palacios is a 5 4 year old male who complains of left hip pain. He presents with pain on the left side. He states that the symptoms have been chronic non-traumatic. The symptoms occur rarely. The problem is unchanged. Currently the patient states that the symptoms are mild. The pain is described as diffuse. left hip pain Functional Status Date Functional Assessmen t No Information Instructions Date Instruction Additional Infor jason Giving encouragement to exercise Related to Body mass index [BMI] 32.0-32.9, adult Plan to see in 2 [facility] for [facility] recheck. He is now retired. He was a former [place] [employer]. He has an [id number] baby at home. Related to Primary osteoarthritis of left hip Patient was educated on the diagnosis and treatment plan. Related to Primary osteoarthritis of left hip Assessments Type Assessment Date assessment Pain in left hip assessment Body mass index [BMI] 32.0-32.9, adult assessment Unilateral primary osteoarthriti s, left hip assessment Presence of left artificial hip joint impression primary osteoarthrit is left hip. Patient is status post left total hip date of surgery was February 25, 2002. He is very pleased with the results. He really has minimal complaints. He would benefit from weight loss. We discussed this. He is moving out of the area literally came back just with this appointment. We will leave this pleasant gentleman an open appointment. If he has any problem is questions concerns he was asked call. I did recommend prophylactic antibiotics associate with procedures. If he has any problems questions concerns we will be available. Patient Care Teams Name Effective Dates (start - stop) Status Members No Information
--- OUTSIDE RECORDS SUMMARY | 2024-06-04 10:05 | XMS_ITS | Referral Summary ---
Author Organization [facility] Address [address] [place] [address] Care Team Providers Care Receptionist Secretary Name Role Phone Matias Nieto MD Primary Care Provider [phone] Allergies No known active allergies Medications tadalafil [...] right hip 09/22/2021 Hypogonadism in male 12/06/2016 Social History Tobacco Use Types Packs/Day Years [...] on file Sexual Orientation Not on file Last Filed Vital Signs Vital Sign Reading [...] 07/11/2023 11:12 AM CDT Plan of Treatment Not on file Insurance [facility] HMO/PPO Address: [address] [place] [address] [employer] OPEN ACCESS Care Teams Receptionist Secretary Relationship Specialty Start Date End Date Matias Nieto MD PCP - General 11/24/16
[2024-06-04 13:33] LABS: Hemoglobin A1C 5.7 % (<5.7)
[2024-06-04 13:44] LABS: Alanine Aminotransferase 23 U/L (6-50); Albumin Level 4.5 g/dL (3.5-5.1); Alkaline Phosphatase 71 U/L (38-126); Anion Gap 8 mmol/L (4-12); Aspartate Amino Transferase 41 U/L (17-59); Bilirubin,Total 0.5 mg/dL (0.2-1.3); Blood Urea Nitrogen 20 mg/dL (9-20); Calcium 9.3 mg/dL (8.4-10.2); Carbon Dioxide 28 mmol/L (22-30); Chloride 106 mmol/L (98-107); Cholesterol 138 mg/dL (0-200); Estimated Glomerular Filt Rate 54; Glucose 91 mg/dL (65-110); HDL Direct 42 mg/dL; Potassium 5.2 mmol/L (3.4-5.0); Sodium 142 mmol/L (137-145); Triglycerides 78 mg/dL (<150)
[2024-06-04 13:56] LABS: LDL Cholesterol Direct 68 mg/dL
== END 2024-06-04 09:22 | disposition home or self-care (01) ==
LOC: ANHGOSHLAB 09:22
PROVIDERS: PCP Family Medicine; Visit Provider Family Medicine
DX: E78.5 Hyperlipidemia, unspecified (principal)
CPT/HCPCS: 36415; 80053; 80061; 83036